=== PATIENT | female | born 1950 | race Caucasian/White ===

== ENCOUNTER 2024-07-05 08:19 | Emergency (ER) | payer OTHER, SELFPAY ==
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
[2024-07-05 08:34] VITALS: BP 177/102; PULSE 90; RESP 18; TEMP 36.6; O2SAT 99; BMI 23.4
[2024-07-05] MEDS: Acetaminophen 325 MG TABLET 650 MG PO (09:27)
[2024-07-05 11:30] VITALS: BP 146/94; PULSE 84; RESP 16; TEMP 37; O2SAT 99
[2024-07-05 11:31] VITALS: BP 146/94; PULSE 84; RESP 16; TEMP 37; O2SAT 99
--- OUTSIDE RECORDS SUMMARY | 2024-07-05 13:05 | XMS_ITS | Clinical Summary ---
Author Organization [facility] Address [address] [place] [address] Phone Care Team Providers Care Finance Vice President Name Role Phone Ryann Penn MD Primary Care Provider + Allergies Active Allergy Reactions Criticality Noted Date Comments Codeine Other (see comments) 03/09/2013 Dexbrompheniramine-Pseudoeph 014 Hornet Venom Other (see comments) 09/11/2023 Sulfa Antibiotics Hives 07/05/2011 hives Wasp Venom 05/25/2021 Wasp Venom Protein Other (see comments) 024 Medications amLODIPine (NORVASC) 2.5 MG tablet Take 1 tablet by mouth 1 (one) time each day 08/04/2023 Active atorvastatin (LIPITOR) 10 MG tablet Take 1 tablet by mouth 1 (one) time each day 08/04/2023 Active loratadine (CLARITIN REDITABS) 10 MG dispersible tablet Take 10 mg by mouth 1 (one) time each day Active levothyroxine sodium (TIROSINT) 112 MCG capsule Take 112 mcg by mouth 1 (one) time each day Active Multiple Vitamin (multivitamin) capsule Take 1 capsule by mouth 1 (one) time each day Active Active Problems Problem Noted Date Diagnosed Date Hypertensive disorder 07/10/2022 Benign hypertension 08/23/2021 Resolved Problems Problem Noted Date Diagnosed Date Resolved Date Hypothyroidism 09/11/2023 09/11/2023 Hypercholesterolemia 07/10/2022 024 Sleep apnea 07/10/2022 09/11/2023 Hyperlipidemia 08/23/2021 09/11/2023 Urgent desire to urinate 05/25/202109/2023 Overview (09/11/2023): Last Assessment & Plan: Decrease spicy, acidic foods and drinks. Decrease caffeine and carbonated beverages. Try to train the bladder by only going to the bathroom every 2 hours. Increase by a small amount of time daily to get to that goal. In the meantime, when you have the urge FREEZE AND SQUEEZE. If not improving, she will call to follow up with Urology for possible medical management of overactive bladder. Mitral valve regurgitation 03/26/2021 0 09/11/2023 Overview (09/11/2023): Mitral valve regurgitation Urticaria 03/06/2021 09/11/2023 Overview (09/11/2023): wasp and insect referred to Allergy History of Helicobacter pylori infection 05/05/2019 09/11/2023 Overview (09/11/2023): Triple therapy (OAC). Test of cure was negative 06/2019. Cervical spondylosis without myelopathy 09/13/2015 09/11/2023 Periodic limb movement disorder 02/11/2014 09/11/2023 Obstructive sleep apnea 02/11/201409/2023 Overview (09/11/2023): ResScan 02/17/2015 to 03/18/2015. CPAP@ 4-12 with 8.3 average. 87% compliant with using the machine for >4 hours/day. Average use is 6.25 hours a night with AHI 1.4. [employer] message sent to patient. 05/12/2018 to 08/09/2018. CPAP@ 4-12/Average 9.7/Max 9.8. 100% compliant with using the machine for >4 hours/day. Average use is 7.75 hours a night with AHI 1.3. Last Assessment & Plan: Continue with the use of CPAP New sleep study Patient will need a new CPAP machine with The sleep study. We will call her after the results. Allergic rhinitis 07/19/2011 09/11/2023 Immunizations Name Administration Dates Next Due Influenza Split High Dose Pr eservative Free IM 03/13/2020,05/17/2019,04/13/2017 Influenza Vaccine, Quadrival ent, Adjuvanted 03/19/2021 Influenza, Unspecified 03/06/2023,06/23/2018,06/2012 Pfizer SARS-COV-2 03/06/2023, 2,12/21/2021,03/19,08/15/2020,07/25/2020 Pneumococcal Conjugate 13-Valent 05/08/2017 Pneumococcal Polysaccharide 05/17/2019 Tdap 09/30/2022,10/27/2012 Family History Medical History Relation Comments Hypertension Brother Migraines Brother Cancer Father Ulcers Father Diabetes Mother's Brother Cancer Mother's Sister Ulcers Mother's Sister Ulcers Paternal Grandfather Stroke Sister Relation Status Comments Brother Father Mother's Brother Mother's Sister Paternal Grandfather Sister Social History Tobacco Use Types Packs/Day Years Used Date Smoking Tobacco: Never Passive Smoke Exposure: Never Smokeless Tobacco: Never Tobacco Cessation:Counseling Given: No Alcohol Use Standard Drinks/Week Comments Never 0 (1 standard drink = 0.6 oz pur e alcohol) Comments Unknown Sex and Gender Information Value Date Recorded Sex Assigned at Not on file Legal Sex Female 9:36 AM EST Gender Identity Not on file Sexual Orientation Not on file Last Filed Vital Signs Vital Sign Reading Time Taken Comments Blood Pressure 130/70 09/12/2023 9:58 AM EDT Pulse 83 09/12/2023 9:58 AM EDT Temperature - - Respiratory Rate - - Oxygen Saturation - - Inhaled Oxygen Concentration - - Weight 59.9 kg (132 lb) 09/12/2023 9:58 AM EDT Height - - Body Mass Index - - Plan of Treatment Health Maintenance Due Date Last Done Comments Influenza Vaccine (#1) 2024 3, 03/19/2021, 03/13/2020, Additional history exists Pneumococcal Vaccine: 65+ Years Completed 05/17/2019, 05/08/2017 Hepatitis B Vaccine Aged Out No longe r eligible based on patient's age to complete this topic Insurance [address] [place] [address] [facility] Care Teams Finance Vice President Relationship Specialty Start Date End Date Ryann Penn MD PCP - General 08/11/23
--- OUTSIDE RECORDS SUMMARY | 2024-07-05 13:05 | XMS_ITS | Clinical Summary ---
Author Organization [address] Address [address] [place] [phone] Phone Care Team Providers Care Industrial Machine Assembler Name Role Phone Ryann Osorio MD Primary Care Prov ider Allergies Active Allergy Reactions Criticality Noted Date Comments Codeine 03/09/2013 Dexbrompheniramine-Pseudoephed 02/27 Hornet Venom Other 09/11/2023 Sulfa (Sulfonamide Antibiotics) 06/10 hives Wasp Venom 05/25/2021 Medications Medication Sig Dispensed Refills Start Date End Date Status amLODIPine (NORVASC) 2.5 mg tablet TAKE 1 TABLET BY MOUTH DAILY 01/30/2024 Active multivitamin with minerals (MULTIPLE VITAMIN-MINERALS ORAL) Take by mouth daily. Active atorvastatin (LIPITOR) 10 mg tablet TAKE 1 TABLET BY MOUTH DAILY 01/30/2024 Active EPINEPHrine (EpiPen 2-Jesse) 0.3 mg/0.3 mL injection 10/16/2023 Active fluticasone propionate (FLONASE) 50 mcg/actuation nasal spray 2 Sprays by Nasal route daily. 04/01/2019 Active loratadine (CLARITIN REDITABS) 10 mg dispersible tablet Take 10 mg by mouth daily. Active levothyroxine (SYNTHROID, LEVOTHROID) 112 mcg tablet TAKE 1 TABLET BY MOUTH DAILY 90 tablet 1 05/13/2024 Active Active Problems Problem Noted Date Diagnosed Date Hypothyroidism 04/05/2024 HTN (hypertension), benign 08/23/2021 Hyperlipidemia 08/23/2021 Urinary urgency 05/25/2021 Overview (04/05/2024): Last Assessment & Plan: Decrease spicy, acidic [...] of overactive bladder. 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 CPAP@ 4-12 with 8.3 average. 87% compliant with using the machine for >4 hours/day. Average use is 6.25 hours a night with AHI 1.4. [employer] message sent to patient. 05/12/2018 to 08/09/2018. CPAP@ 4-12/Average 9.7/Max 9.8. 100% compliant with using the machine for >4 hours/day. Average use is 7.75 hours a night with AHI 1.3. Last Assessment & Plan: Continue with the use of CPAP New sleep study Patient will need a new CPAP machine with The sleep study. We will call her after the results. Periodic limb movement disorder (PLMD) 4 Allergic rhinitis 07/19/2011 Encounters Date Type Department Care Team Description 05/17/2024 9:30 AM EST Office Visit Adult Medicine [address] [phone] Lisandra Justice PA Adult general medical examination (Primary Dx); Easy bruising; Acute non-recurrent maxillary sinusitis; Sensation of feeling cold; History of skin cancer 05/14/2024 12:30 PM EST Office Visit [address] [phone] Erma Collier PA Easy bruising (Primary Dx); Acute non-recurrent maxillary sinusitis; HTN (hypertension), benign; Mixed hyperlipidemia; Hypothyroidism, unspecified type 04/26/2024 Nurse Triage [address] [phone] Ryann Osorio MD Bleeding/Bruising from Last 3 Months Immunizations Name Administration Dates Next Due Influenza trivalent, 0.5mL ( Fluad) 65yo and older 03/19/2021,03/13/2020,05/17/2019,04/13 Influenza trivalent, 0.5mL, preservative free (Fluarix; FluLaval; Fluzone) ages 6mo and older (Afluria) 3 years and older 03/06/2023,03/09/2013 Influenza, Unspecified 06/23/2018 Flixwagon SARS-CoV-2 COVID-19, mRNA, LNP-S, preservative free 03/06/2023,03/19/2021 Pneumococcal conjugate 13 va lent (Prevnar 13, PCV13) 2mo and older 05/08/2017 Pneumococcal polysaccharide 23 valent (Pneumovax 23) 2yo and older 05/17/2019 Tdap Tetanus diptheria acell ular pertussis (Boostrix; Adacel) 7yo and older 09/30/2022,10/27/2012 Surgical History Surgery Date Site/Laterality Comments HYSTERECTOMY PROCEDURE: HISTORICAL HYSTERECTOMY; COMMENT: 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 breast bx.-benign BREAST SURGERY PROCEDURE: [place] UNLISTED PROCEDURE BREAST; COMMENT: bilat implants, lt implant deflated. never removed COLONOSCOPY 05/10/2020 PROCEDURE: HISTORICAL COLONOSCOPY; COMMENT: tiny polyp - hyperplastic Medical History Medical History Date Comments Hypothyroidism DX:Hypothyroidis m Other specified personal his tory presenting hazards to health(V15.89) DX:Other specifie d personal history presenting hazards to health(V15.89); COMMENT: basal cell Periodic limb movement disorder (PLMD) 4 DX:Periodic limb movement disorder (PLMD) Obstructive sleep apnea (linette lt) (pediatric) 02/11/2014 DX:Obstructive sleep apnea ( adult) (pediatric) Allergic rhinitis 07/19/2011 DX:Allergic rh initis Embedded tick of upper arm 10/19/2012 DX:Em bedded tick of upper arm History of Helicobacter pylo ri infection 05/05/2019 DX:History of Helicobacter p ylori infection; COMMENT: Triple therapy (OAC). Test of cure was negative 06/2019. Skin cancer DX:Skin cancer Family History Medical History Relation Name Comments Uterine cancer Aunt 1 maternal Other: gastric ulcers Aunt 2 paternal Hypertension Brother Migraines Brother Lung cancer Father smoker, d Other: gastric ulcer Father Hypertension Mother fath Breast cancer Other 1 cousin age 40 Breast cancer Other 2 2nd paternal cousin Other: gastric ulcers Paternal Grandfather Stroke Sister Diabetes Uncle Colon cancer Neg Hx Heart attack Neg Hx Ovarian cancer Neg Hx Pancreatic cancer Neg Hx Prostate cancer Neg Hx Relation Name Status Comments Aunt 1 maternal Aunt 2 paternal Alive Brother Father Mother Other 1 cousin age 40 Alive p. cousin Other 2 2nd paternal cousin Alive Paternal Grandfather Sister Uncle Social History Tobacco Use Types Packs/Day Years Used Date Smoking Tobacco: Former Smokeless Tobacco: Former Comments:One year in college Alcohol Use Standard Drinks/Week Comments Not Currently 0 (1 standard drink = 0.6 oz pur e alcohol) Housing Instability Answer Date Recorde d Are you worried that in the next 2 months you may not have stable housing? No 05/17/2024 Food Access & Nutrition Answer Date Rec orded Do you have access to a vari ety of food including fruits and vegetables? Yes 05/17/2024 Health Literacy Answer Date Recorded How often do you need to hav e someone help you when you read instructions, pamphlets, or other written material from your doctor or pharmacy? Never 05/17/2024 Caregiver: How often do you need to have someone help you when you read instructions, pamphlets, or other written material from your doctor or pharmacy? Not on file 05/17/2024 Financial Risk Answer Date Recorded How hard is it for you to pa y for the very basics like food, housing, medical care, and air conditioning / heating? Not very hard 05/17/2024 Transportation Answer Date Recorded Has the lack of transportati on kept you from meetings, work, or from getting things needed for daily living? No Has the lack of transportati on kept you from medical appointments or from getting medications? No 05/17/2024 Social Isolation Answer Date Recorded How often do you feel lonely or isolated from th ose around you? Never 05/17/2024 Food Risk Answer Date Recorded Within the past 12 months we worried whether our food would run out before we got money to buy more. Never true 05/17/2024 Within the past 12 months th e food we bought just didn't last and we didn't have money to get more. Never true 05/17/2024 Dependent Care Answer Date Recorded Do you need help finding or paying for care for your loved ones. For example, child care center assistant director or elderly care for an older adult? No 05/17/2024 Education Answer Date Recorded Do you think completing more education or training, like finishing a GED, going to college, or learning a trade, would be helpful for you? No 05/17/2024 Employment and Income Answer Date Recor ded During the last four weeks, have you been actively looking for work? No 05/17/2024 Living Situation Answer Date Recorded What is your living situation? 1 07/18/2023 Sex and Gender Information Value Date Recorded Sex Assigned at Not on file Gender Identity Not on file Sexual Orientation Not on file Job Start Date Occupation Industry Not on file Not on file Not on file Obstetrics History Last Filed Vital Signs Vital Sign Reading Time Taken Comments Blood Pressure 136/77 05/17/2024 9:32 AM EST Pulse 81 05/17/2024 9:32 AM EST Temperature 36 ??C (96.8 ??F) 05/17/2024 9:32 AM EST Respiratory Rate 16 05/17/2024 9:32 AM EST Oxygen Saturation - - Inhaled Oxygen Concentration - - Weight 58.5 kg (129 lb) 05/17/2024 9:32 AM EST Height 157.5 cm (5' 2 ) 05/17/2024 9:32 AM EST Body Mass Index 23.59 05/17/2024 9:32 AM EST Plan of Treatment Upcoming Encounters Date Type Department Care Team (Late st Contact Info) Description 08/05/2024 8:30 AM EST Office Visit Pulmonolgy - [place] [address] [facility] [address] [place] [phone] Maia Moreno MD [address] [address] 11/04/2024 9:00 AM EDT Appointment Radiology Department - [address] [phone] 11/15/2024 9:00 AM EDT Office Visit [facility] - [address] [phone] Ryann Osorio MD [address] [place] [address] Health Maintenance Due Date Last Done Comments Zoster Vaccines (1 of 2) 1969 COVID-19 Vaccine ( season) 2024 03/06/2023, 12/21/2021, 03/19/2021, Additional history exists Hypertension/CHF/CAD Annual BMP Blood Test 11/19/2024 11/20/2023, 11/20/2023 Depression Screening 05/17/2025 05/17/2024 Falls Risk Assessment 05/17/2025 05/17/2024 Social Influencers of Health Screening 05/17/2025 05/17/2024 Cholesterol Screening (Lipid Panel) 11/19/2028 11/20/2023, 11/20/2023 DTaP,Tdap,and Td Vaccines (3 - Td or Tdap) 09/30/2032 09/30/2022, 10/27/2012 Osteoporosis Screening (Bone Density Screening) 02/19/2033 02/19/2023, 11/16/2020, 04/25/2017 Hepatitis C Screening Completed 03/12/2013 Pneumococcal Vaccine: 65+ Years Completed 05/17/2019, 05/08/2017 Colorectal Cancer Screening: Colonoscopy Discontinued 05/10/2020 Breast Cancer Screening Discontinued 10/23/19 24, 10/23/2023, 10/16/2022, Additional history exists Influenza Vaccine Completed 03/15/2024, , 03/19/2021, Additional history exists RSV Immunization Patients 60+ Years Old Completed 03/15/2024 HIB Vaccines Aged Out No longer eligi ble based on patient's age to complete this topic HPV Vaccines Aged Out No longer eligi ble based on patient's age to complete this topic Hepatitis A Vaccines Aged Out No long er eligible based on patient's age to complete this topic Hepatitis B Vaccines Aged Out No long er eligible based on patient's age to complete this topic IPV Vaccines Aged Out No longer eligi ble based on patient's age to complete this topic MMR Vaccines Aged Out No longer eligi ble based on patient's age to complete this topic Meningococcal ACWY Vaccine Aged Out N o longer eligible based on patient's age to complete this topic RSV Immunization Patients Under 20 months Aged Out No longer eligible based on patient's age to complete this topic Varicella Vaccines Aged Out No longer eligible based on patient's age to complete this topic Procedures Procedure Name Priority Date/Time Associated Diagnosis Comments POC RAPID STREP A Routine 05/14/2024 1:0 8 PM EST HTN (hypertension), benign POC INFLUENZA A/B Routine 05/14/2024 1:0 8 PM EST HTN (hypertension), benign POC RAPID [id number], MOLECULAR Routine 05/14/2024 1:08 PM EST HTN (hypertension), benign CBC WITH AUTO DIFFERENTIAL Routine 05/12/2024 12:10 PM EST Bruising ACTIVATED PARTIAL THROMBOPLASTIN TIME Routine 05/12/2024 12:10 PM EST Bruising PROTHROMBIN TIME WITH INR Routine 05/12/2024 12:10 PM EST Bruising CBC AND DIFFERENTIAL Routine 05/12/2024 12:10 PM EST Bruising THYROID STIMULATING HORMONE Routine 05/12/2024 12:10 PM EST Bruising ANNUAL BMP BLOOD TEST Routine 11/20/2023 LIPID PANEL Routine 11/20/2023 SCREENING MAMMOGRAPHY BI 2-VIEW BREAST INC CAD Routine 10/23/2023 8:03 AM EDT Encounter for screening mammogram for malignant neoplasm of breast DXA BONE DENSITY STUDY 1+ SITS AXIAL SKEL Routine 02/19/2023 9:33 AM EDT Encounter for screening for osteoporosis HEPATITIS C SCREENING Routine 03/12/2013 from Last 3 Months or Most Recently Relevant to Health Maintenance Results * Poc Rapid [id number], MOLECULAR (05/14/2024 1:08 PM EST) [facility] COVID-19/SARS- COV-2 Rapid POC Negative Negative Internal Control Pass Yes Yes Mucous Nasopharyngeal structure / Unknown 05/14/2024 1:08 PM EST Erma Collier PA POINT OF CARE TEST E NTER/EDIT ORDERABLES * POC Influenza A/B manually resulted (05/14/2024 1:08 PM EST) [facility] Rapid Influenza A AGN POC Negative Negative Rapid Influenza B AGN POC Negative Negative Internal Control Pass Yes Yes Swab 05/14/2024 1:08 PM EST Erma Collier PA POINT OF CARE TEST E NTER/EDIT ORDERABLES * POC rapid strep A manually resulted (05/14/2024 1:08 PM EST) [facility] Rapid Strep A Screen POC Negative Negative Internal Control Pass Yes Yes Swab Structure of anterior portion of neck / Unknown 05/14/2024 1:08 PM EST Erma Collier PA POINT OF CARE TEST E NTER/EDIT ORDERABLES * (ABNORMAL) CBC auto differential (05/12/2024 12:10 PM EST) [facility] WBC 7.2 4.8 - 10.8 K/mcL LAB HEMETOLOGY METHOD 05/12/2024 1:56 PM [facility] RBC 4.10 3.80 - 4.80 M/mcL LAB HEMETOLOGY METHOD 05/12/2024 1:56 PM [facility] Hemoglobin 12.3 11.5 - 16.0 g/dL LAB HEMETOLOGY METHOD 05/12/2024 1:56 PM [facility] Hematocrit 39.3 35.0 - 47.0 % LAB HEMETOLOGY METHOD 05/12/2024 1:56 PM [facility] MCV 95.2 79.0 - 98.0 FL LAB HEMETOLOGY METHOD 05/12/2024 1:56 PM [facility] MCH 29.8 27.0 - 32.0 pcg LAB HEMETOLOGY METHOD 05/12/2024 1:56 PM [facility] MCHC 31.3(L) 32.0 - 37.0 g/dL LAB HEMETOLOGY METHOD 05/12/2024 1:56 PM [facility] RDW 12.7 11.0 - 15.0 % LAB HEMETOLOGY METHOD 05/12/2024 1:56 PM [facility] Platelets 215 130 - 400 K/mcL LAB HEMETOLOGY METHOD 05/12/2024 1:56 PM [facility] MPV 12.2(H) 7.0 - 11.0 FL LAB HEMETOLOGY METHOD 05/12/2024 1:56 PM [facility] NRBC 0.0 <1.0 % LAB HEMETOLOGY METHOD 05/12/2024 1:56 PM [facility] NRBC Absolute 0.00 <0.10 K/mcL LAB HEMETOLOGY METHOD 05/12/2024 1:56 PM [facility] Neutrophils Relative 67.2 % LAB HEMETOLOGY METHOD 05/12/2024 1:56 PM [facility] Lymphocytes Relative 20.1 % LAB HEMETOLOGY METHOD 05/12/2024 1:56 PM [facility] Monocytes Relative 9.4 % LAB HEMETOLOGY METHOD 05/12/2024 1:56 PM [facility] Eosinophils Relative 2.4 % LAB HEMETOLOGY METHOD 05/12/2024 1:56 PM [facility] Basophils Relative 0.6 % LAB HEMETOLOGY METHOD 05/12/2024 1:56 PM [facility] Immature Granulocytes Relative 0.3 % LAB HEMETOLOGY METHOD 05/12/2024 1:56 PM [facility] Neutrophils Absolute 4.82 1.50 - 7.00 K/mcL LAB HEMETOLOGY METHOD 05/12/2024 1:56 PM [facility] Lymphocytes Absolute 1.44 1.00 - 5.00 K/mcL LAB HEMETOLOGY METHOD 05/12/2024 1:56 PM [facility] Monocytes Absolute 0.67 0.20 - 1.00 K/mcL LAB HEMETOLOGY METHOD 05/12/2024 1:56 PM [facility] Eosinophils Absolute 0.17 0.00 - 0.50 K/mcL LAB HEMETOLOGY METHOD 05/12/2024 1:56 PM [facility] Basophils Absolute 0.04 0.00 - 0.20 K/mcL LAB HEMETOLOGY METHOD 05/12/2024 1:56 PM [facility] Immature Granulocytes Absolute 0.02 0.00 - 0.03 K/mcL LAB HEMETOLOGY METHOD 05/12/2024 1:56 PM [facility] Blood Venous blood specimen / Unknown Venipuncture / Unknown 05/12/2024 12:10 PM EST 05/12/2024 12:10 PM EST Ryann Osorio MD LAB BLOOD ORDERABLES Performing Organization Address City/[facility]/ZIP Co de Phone Number [facility] [address] [place] [address], [place] [phone] * Activated partial thromboplastin time (05/12/2024 12:10 PM EST) aPTT 33.8 24.1 - 39.3 sec LAB COAGULATION METHOD 05/12/2024 1:59 PM EST [facility] Blood Venous blood specimen / Unknown Venipuncture / Unknown 05/12/2024 12:10 PM EST 05/12/2024 12:10 PM EST Ryann Osorio MD LAB BLOOD ORDERABLES Performing Organization Address [facility]/ZIP Co de Phone Number [facility] [address] [place] [address], [place] [phone] * Prothrombin time with INR (05/12/2024 12:10 PM EST) [facility] Protime 11.6 10.6 - 13.9 sec LAB COAGULATION METHOD 05/12/2024 1:59 PM EST [facility] INR 0.9 LAB COAGULATION METHOD 05/12/2024 1:59 PM EST [facility] Blood Venous blood specimen / Unknown Venipuncture / Unknown 05/12/2024 12:10 PM EST 05/12/2024 12:10 PM EST Ryann Osorio MD LAB BLOOD ORDERABLES Performing Organization Address City/[facility]/ZIP Co de Phone Number [facility] [address] [place] [address], [place] [phone] * Thyroid stimulating hormone (05/12/2024 12:10 PM EST) [facility] TSH 1.93 0.40 - 4.00 mcIU/mL LAB CHEMISTRY METHOD 05/12/2024 2:45 PM EST [facility] Blood Venous blood specimen / Unknown Venipuncture / Unknown 05/12/2024 12:10 PM EST 05/12/2024 12:10 PM EST Ryann Osorio MD LAB BLOOD ORDERABLES [facility] [address] [place] [address], * Annual BMP Blood Test (11/20/2023) [facility] Annual BMP Blood Test Abstracted Historical Provider [facility] * Lipid panel (11/20/2023) [facility] LDL/HDL Ratio 2 0 - 4 Triglycerides 70 0 - 150 mg/dL Cholesterol 165 0 - 200 mg/dL HDL 78 40 mg/dL LDL Cholesterol 73 0 - 100 mg/dL Blood Venous blood specimen / Unknown Historical Provider LAB BLOOD ORDERAB LES * SCREENING MAMMOGRAPHY BI 2-VIEW BREAST INC CAD (10/23/2023 8:03 AM EDT) Anatomical Region Laterality Modality Radiographic Jia ging 10/16/2022 7:48 AM EDT Narrative 10/23/2023 6:56 PM EDT This is a summary report. The complete report is available in the patient's medical record. If you cannot access the medical record, please contact the sending organization for a detailed fax or copy. Exam: Screening mammogram Findings: Digital bilateral full-field screening mammography is performed with tomosynthesis and interpreted with the aid of computer-aided detection. ??Comparison is made with 10/16/2022 and as far back as 11/06/2018. ??Implant and implant displaced views performed. Breast parenchyma is composed of scattered fibroglandular densities. 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 ??Right implant appears intact. ??No new suspicious mass, architectural distortion, or suspicious calcifications. Impression: No mammographic evidence of malignancy. BI-RADS 2-benign Procedure Note Viry Salmeron MD - 01/26/2024 This is a summary report. The complete report is available in thepatient's medical record. If you cannot access the medical record, pleasecontact the sending organization for a detailed fax or copy. Exam: Screening mammogram Findings: Digital bilateral full-field screening mammography is performedwith tomosynthesis and interpreted with the aid of computer-aideddetection. Comparison is made with 10/16/2022 and as far back as11/06/2018. Implant and implant displaced views performed. Breast parenchyma is composed of scattered fibroglandular densities.Patient is noted to have a history of left implant failure not removedwith a portion of the implant seen in the far posterior left breast on theCC projection. Right implant appears intact. No new suspicious mass,architectural distortion, or suspicious calcifications. Impression: No mammographic evidence of malignancy. BI-RADS 2-benign Ryann Osorio MD IMG XR PRO CEDURES * DXA BONE DENSITY STUDY 1+ SITS AXIAL SKEL (02/19/2023 9:33 AM EDT) Anatomical Region Laterality Modality Bone Densitometr y 11/20/2022 9:09 AM EDT Narrative 02/20/2023 8:20 PM EDT STUDY: ??DUAL ENERGY X-RAY ABSORPTIOMETRY / DXA REASON FOR EXAM: ?? Female, 72 years old. ??osteoporosis TECHNIQUE: ?? Bone Mineral Density (BMD) measurements of the lumbar spine and left hip were obtained. ?? COMPARISON: November 16, 2020 ?? FINDINGS: L1, L4 T score: -2.0. ??This corresponds to osteopenia. This represents a 7.2 % increase in bone density compared with prior exam from November 16, 2020. Left femoral neck T score: -1.9. ??This corresponds to osteopenia. Left total hip T score: -1.3. ??This corresponds to osteopenia. This represents a -3.3 % decrease in bone density compared with prior exam from November 16, 2020. FRAX score: 10 year risk of major osteoporotic fracture 13%, 10 year risk of hip fracture 3.1% IMPRESSION: IMPRESSION: Osteopenia Reference Information: The T-score is the number of standard deviations above or below the standard which is normal for young adults at their peak bone mineral density. The World Health Organization (WHO) interprets the T-scores as follows: Above ??-1 ?Normal bone density Between -1 and -2.5 ?Osteopenia Equal to / or below -2.5 ??Osteoporosis As a practical clinical guideline, osteopenia may be graded as follows: Mild -1 through -1.5 Moderate -1.6 ??through -2.0 Severe ??-2.1 ??through -2.4 References: 1. ??NIH Osteoporosis and Related Bone Diseases http://www.osteo.org 2. ??International Society for Clinical Densitometry http://www.iscd.org 3. ??National Osteoporosis Foundation http://www.nof.org Procedure Note Ryan Devi MD - 07/15/2023 STUDY: DUAL ENERGY X-RAY ABSORPTIOMETRY / DXA REASON FOR EXAM: Female, 72 years old. osteoporosis TECHNIQUE: Bone Mineral Density (BMD) measurements of the lumbar spineand left hip were obtained. COMPARISON: November 16, 2020 FINDINGS: L1, L4 T score: -2.0. This corresponds to osteopenia. This represents a 7.2 % increase in bone density compared with prior examfrom November 16, 2020. Left femoral neck T score: -1.9. This corresponds to osteopenia. Left total hip T score: -1.3. This corresponds to osteopenia. This represents a -3.3 % decrease in bone density compared with prior examfrom November 16, 2020. FRAX score: 10 year risk of major osteoporotic fracture 13%, 10 year riskof hip fracture 3.1% IMPRESSION: IMPRESSION: Osteopenia Reference Information: The T-score is the number of standard deviations above or below thestandard which is normal for young adults at their peak bone mineral density. The World HealthOrganization (WHO) interprets the T-scores as follows: Above -1 Normal bone density Between -1 and -2.5 Osteopenia Equal to / or below -2.5 Osteoporosis As a practical clinical guideline, osteopenia may be graded as follows: Mild -1 through -1.5 Moderate -1.6 through -2.0 Severe -2.1 through -2.4 References: 1. NIH Osteoporosis and Related Bone Diseases http://www.osteo.org 2. International Society for Clinical Densitometry http://www.iscd.org 3. National Osteoporosis Foundation http://www.nof.org Ryann Osorio MD IMG DXA [place] OCEDURES * Hepatitis C Screening (03/12/2013) [facility] Hepatitis C Screening Abstracted Historical Provider MD JACK Rae from Last 3 Months or Most Recently Relevant to Health Maintenance Care Teams Industrial Machine Assembler Relationship Specialty Start Date End Date Ryann Osorio MD [address] [place] [address] PCP - General Internal Medicine 01/07/22
--- OUTSIDE RECORDS SUMMARY | 2024-07-05 13:05 | XMS_ITS | Data Portability ---
Author Organization RAFAEL Isbell [facility] [address] Address [address] [place] [address] Care Team Providers Care Input Output Clerk Name Role Phone [facility] Primary Care Provider [phone] Assessment No assessment recorded. Plan of Treatment Reminders Order Date Submit Date Provider Last Modified By Organization Details Last Modified Time Details Appointments None recorded. Lab urinalysis , dipstick [email or web address], [address], 17:16:43 culture, urine 2022 023 [place] [facility], [address] [place] [address], [address], 16:06:34 Referral None recorded. Procedures None recorded. Surgeries None recorded. Imaging None recorded. Medication Orders Macrobid 100 mg capsule 2022 023 [id number], [address] [place] [address], [id number], 17:16:55 Patient TargetsNo targets recorded. Patient Instructions Encounter Date Encounter Id Patient Instructions Last Modified By Organization Details Last Modified Time 07/10/2022 [id number] Urinary Tract Infection (UTI) in Women: Care Instructions Not available 07/10/2022 17:16:43 You are going to be treated for a Urinary Tract Infection. The following are recommendations to help with your symptoms and recovery: 1. Drink Plenty of fluids - Stay hydrated 2. Finish full antibiotic course 3. I recommend starting a Probiotic - I recommend Florastor 4. If you take Azo - this will help the burning and urgency feeling - just be aware it will turn your urine bright yellow. I would not hesitate to be seen again if you develop: 1. Severe Back Pain 2. Abdominal Pain 3. Nausea and Vomiting 4. Vaginal Discharge or Bleeding 5. Fever > 101.0 You symptoms should improve within 72 hours for a typically UTI. If a urine culture was sent out to the lab for you we should get the results back within 4 days. This will be able to prove that your symptoms are caused by a UTI and it will also verify that the correct antibiotic was prescribed. Thank you for using [facility] - please don't hesistate to call our office if you have any questions or concerns. [email or web address] Not available 07/10/2022 17:16:42 Reason for Referral None Reported. Results Created Date Observation Date Name Description Value Unit Range Abnormal Flag Note LastModifiedBy Organization Detail LastModifiedTime 07/10/1907/12/2022 URINE CULTU ABIGAIL JON urine culture, routine FINAL REPORT abnormal Not Available [facility] ([facility]) [address] [facility], [place], [address], 07/12/2022 16:06:34 07/10/1907/12/2022 URINE CULTU REABIGAIL result 1 COMMEN T abnormal Beta hemol ytic Strep tococ cus, group B 10,00 0-25, 000 colon y formi ng units per mL Penic illin and ampic illin are drugs of choic e for treat ment of beta- hemol ytic strep tococ salazar infec tions . Susce ptibi lity testi ng of penic illin s and other beta- lacta m agent s appro jeffrey by the FDA for treat ment of beta- hemol ytic strep tococ salazar infec tions need not be perfo rmed abigail blockau se nonsu scept ible isola edouard are extre amber rare in any beta- hemol ytic strep tococ cus and have not been repor sade for Strep tococ cus pyoge lyndon (grou p A). (CLSI ) Not Available [facility] ([facility]) [address] [facility], [place], [address], 07/12/2022 16:06:34 07/10/19 23 07/10/2022 urina lysis , dipst ick Unknown Analyte Normal = light yellow Not Available yenifer amaya [address], [place], [address], 07/10/2022 16:45:47 07/10/19 23 07/10/2022 urina lysis , dipst ick Unknown Analyte Light Yellow Not Available yenifer amaya [address], [place], [place], [address], 07/10/2022 16:45:47 07/10/19 23 07/10/2022 urina lysis , dipst ick Unknown Analyte Normal = clear Not Available [facility] [address], [place], [address], 07/10/2022 16:45:47 07/10/19 23 07/10/2022 urina lysis , dipst ick Unknown Analyte Clear Not Available [address], [place], [place], [address], 07/10/2022 16:45:47 07/10/19 23 07/10/2022 urina lysis , dipst ick Unknown Analyte Normal = negati ve Not Available yenifer [address], [place], [address], 07/10/2022 16:45:47 07/10/19 23 07/10/2022 urina lysis , dipst ick Unknown Analyte Negati ve Not Available yenifer amaya [address], [place], [address], 07/10/2022 16:45:47 07/10/19 23 07/10/2022 urina lysis , dipst ick Unknown Analyte Normal = Negati ve Not Available yenifer amaya [address], [place], [address], 07/10/2022 16:45:47 07/10/19 23 07/10/2022 urina lysis , dipst ick Unknown Analyte Negati ve Not Available yenifer aamya [address], [place], [address], 07/10/2022 16:45:47 07/10/19 23 07/10/2022 urina lysis , dipst ick Unknown Analyte Normal = Negati ve Not Available yenifer amaya [address], [place], [address], 07/10/2022 16:45:47 07/10/19 23 07/10/2022 urina lysis , dipst ick Unknown Analyte Negati ve Not Available yenifer amaya [address], [place], [address], 07/10/2022 16:45:47 07/10/19 23 07/10/2022 urina lysis , dipst ick Unknown Analyte Normal = 1.010, 1.015, 1.020 Not Available yenifer amaya [address], [place], [address], 07/10/2022 16:45:47 07/10/19 23 07/10/2022 urina lysis , dipst ick Unknown Analyte 1.015 Not Available [facility] [address], [place], [address], 07/10/2022 16:45:47 07/10/19 23 07/10/2022 urina lysis , dipst ick Unknown Analyte Normal = Negati ve Not Available yenifer amaya [address], [place], [address], 07/10/2022 16:45:47 07/10/19 23 07/10/2022 urina lysis , dipst ick Unknown Analyte Trace- intact Not Available yenifer amaya [address], [place], [address], 07/10/2022 16:45:47 07/10/19 23 07/10/2022 urina lysis , dipst ick Unknown Analyte Normal = 6.5, 7.0, 7.5, 8.0 Not Available [facility] [address], [place], [address], 07/10/2022 16:45:47 07/10/19 23 07/10/2022 urina lysis , dipst ick Unknown Analyte 7.0 Not Available [address] [place] [address], [place], [address], 07/10/2022 16:45:47 07/10/19 23 07/10/2022 urina lysis , dipst ick Unknown Analyte Normal = Negati ve Not Available [address], [place], [address], 07/10/2022 16:45:47 07/10/19 23 07/10/2022 urina lysis , dipst ick Unknown Analyte Negati ve Not Available [address] [place] [address], [place], [address], 07/10/2022 16:45:47 07/10/19 23 07/10/2022 urina lysis , dipst ick Unknown Analyte Normal = 0.2, 1.0 Not Available [address] [place] [address], [place], [address], 07/10/2022 16:45:47 07/10/19 23 07/10/2022 urina lysis , dipst ick Unknown Analyte 0.2 E.U./d L Not Available [address] [place] [address], [place], [address], 07/10/2022 16:45:47 07/10/19 23 07/10/2022 urina lysis , dipst ick Unknown Analyte Normal = Negati ve Not Available 2099yenifer amaya [address], [place], [address], 07/10/2022 16:45:47 07/10/19 23 07/10/2022 urina lysis , dipst ick Unknown Analyte Negati ve Not Available 2099yenifer amaya [address], [place], [address], 07/10/2022 16:45:47 07/10/19 23 07/10/2022 urina lysis , dipst ick Unknown Analyte Normal = Negati ve Not Available 2099yenifer amaya [address], [place], [address], 07/10/2022 16:45:47 07/10/19 23 07/10/2022 urina lysis , dipst ick Unknown Analyte Trace Not Available [address], [place], [address], 07/10/2022 16:45:47 Result Notes None recorded. Problems Name Problem SNOMED Code Status Onset Date Resolution Date Notes Provider Name and Address Organization Details Recorded Time Hypertensive disorder 80078729 Active 2022 Sharon john PA - [facility] 3 16:51:20 Hypercholestero lemia 40278584 Active 2022 Sharon john PA - [facility] 16:51:27 Sleep apnea 20134103 Active 2022 Sharon john PA - [facility] 3 16:51:42 Problem Notes None recorded. Procedures Surgical History Date Name Laterality Status Provider Name and Address Organization Details Recorded Time hysterectomy completed Sharon Monfette PA - [facility] 07/10/2022 16:53:06 Imaging Results None recorded. Procedure Notes None recorded. Medical Equipment None Reported. Allergies Allergen ID Allergen Name Allergen Category Reaction Reaction Severity Criticality Documentation Date Start Date Code Code System Note Provider Name and Address Organization Details Recorded Time 915713 wasp venoms environme nt Not available Not available Not available 07/10/2022 72128 RxNorm Sharon john, PA - [facility] 3 16:48:10 178870 hornet venom environme nt Not available Not available Not available 07/10/2022 14998 UNK Sharon Rivera null, PA - [facility] 3 16:48:16 428323 Substance with sulfonami de structure and antibacte rial mechanism of action (substanc e) medicatio n hives Not available Not available 07/10/2022 51071 8003 SNOMED Sharon john, PA - [facility] 3 16:48:48 385310 codeine medicatio n Not available Not available Not available 07/10/2022 2670 RxNorm Sharon john, PA - [facility] 3 16:48:55 Medications Name Sig Start Date Stop Date Status Note LastModified by Organization Details LastModified Time Macrobid 100 mg capsule Take 1 capsule twice a day by oral route. 2022 active Not Available Not Available Not Avai lable benzonatate 100 mg capsule TAKE 1 CAPSULE BY MOUTH THREE TIMES DAILY NEEDED FOR COUGH 07/10 completed Not Available Not Available Not Available cephalexin 500 mg capsule Take 1 capsule 3 times a day by oral route for 7 days. 2022 active Not Available Not Available Not Avai lable epinephrine 0.3 mg/0.3 mL injection, auto-inject or INJECT DIRECTED NEEDED FOR ANAPHYLAX IS active Not Available Not Available No t Available fluticasone propionate 50 mcg/actuati on nasal spray,suspe nsion SHAKE LIQUID AND USE 1 SPRAY IN EACH NOSTRIL TWICE DAILY FOR ALLERGY SYMPTOMS active Not Available Not Available No t Available atorvastati n active Not Available Not Available Not Available amlodipine active Not Available Not Av ailable Not Available Horizon Nasal Cpap System active Not Available Not Available Not Available Vitals Date Recorded Body height Provider Name an d Address Organization Details Last Updated DateTime 07/10/2022 157.48 cm Sharon Rivera PA - [facility] 07/10/2022 16:53:19 Date Recorded Body mass index (BMI) Body weight Provider Name and Address Organization Details Last Updated DateTime 07/10/2022 23.4 kg/m2 84294.82 g Sharon Rivera PA - [facility] 07/10/2022 16:53:37 Date Recorded Pain severity - 0-10 verbal numeric rating [Score] - Reported Provider Name and Address Organization Details Last Updated DateTime 07/10/2022 5 Sharon Rivera PA - [facility] 07/10/2022 16:53:51 Date Recorded Oxygen saturation Oxygen saturation in Arterial blood by Pulse oximetry Provider Name and Address Organization Details Last Updated DateTime 07/10/2022 100 % 100 % Sharon Rivera PA - [facility] 07/10/2022 16:56:03 Date Recorded Heart rate Provider Name an d Address Organization Details Last Updated DateTime 07/10/2022 71 /min Sharon Rivera PA - [facility] 07/10/2022 16:56:07 Date Recorded Respiratory rate Provider Name a nd Address Organization Details Last Updated DateTime 07/10/2022 18 /min Sharon Rivera PA - [facility] 07/10/2022 16:56:09 Date Recorded Body temperature Provider Name a nd Address Organization Details Last Updated DateTime 07/10/2022 97.8 [degF] Sharon Rivera PA - [facility] 07/10/2022 16:56:18 Date Recorded Systolic blood pressure Diastolic blood pressure Provider Name and Address Organization Details Last Updated DateTime 07/10/2022 160 mm[Hg] 90 mm[Hg] Sharon Rivera PA - [facility] 07/10/2022 17:08:07 Social History Question Answer Notes LastModified by Organizat ion Details LastModified Time What Is Your Level Of Alcohol Consumption? None Information not available 07/10/2022 Do You Use Any Illicit Or Recreational Drugs? No Information not available 07/10/2022 Have You Recently Traveled Abroad? No Information not available 07/10/2022 Do You Or Have You Ever Used Any Other Forms Of Tobacco Or Nicotine? No Information not available 07/10/2022 Sex: Unknown Functional Status None recorded. Mental Status None recorded. Family History Relationship Description Onset Age of this Age Resolved Age Notes LastModified by Organization Details LastModified Time Father Heart disease [email or web address] Not available 2022 16:52:24 Father Malignant tumor of lung [email or web address] Not available 2022 16:52:37 Mother Heart disease [email or web address] Not available 2022 16:52:24 Brother Heart disease [email or web address] Not available 2022 16:52:24 Sister Heart disease [email or web address] Not available 2022 16:52:24 Medical History No medical history recorded. Gynecological HistoryNo gynecological history recorded. Obstetrics History GPAL:G 0 P 0 0 0 0 Immunizations Vaccine Type Date Status Note Provider Nam e and Address Organization Details Recorded Time Influenza, adjuvanted, quadrivalent, PF 1 completed Sharon Monfette null, PA - [facility] 07/10/2022 16:47:56 COVID-19, mRNA, LNP-S, PF, 30 mcg/0.3 mL dose 1 completed Sharon Monfette null, PA - [facility] 07/10/2022 16:47:56 COVID-19, mRNA, LNP-S, PF, 30 mcg/0.3 mL dose 1 completed Sharon Monfette null, PA - [facility] 07/10/2022 16:47:56 COVID-19, mRNA, LNP-S, PF, 30 mcg/0.3 mL dose 1 completed Sharon Monfette null, PA - [facility] 07/10/2022 16:47:56 COVID-19, mRNA, LNP-S, PF, 30 mcg/0.3 mL dose, kimmie-sucrose 2 completed Sharon Monfette null, PA - [facility] 07/10/2022 16:47:56 pneumococcal polysaccharide PPV23 9 completed Sharon Monfette null, PA - [facility] 07/10/2022 16:47:56 Tdap 3 completed Sharon Monfette null, PA - [facility] 07/10/2022 16:47:56 Pneumococcal conjugate PCV 13 7 completed Sharon Monfette null, PA - [facility] 07/10/2022 16:47:56 Influenza, high-dose, trivalent, PF 0 completed Sharon Monfette null, PA - [facility] 07/10/2022 16:47:56 Influenza, high-dose, trivalent, PF 7 completed Sharon Monfette null, PA - [facility] 07/10/2022 16:47:56 Influenza, high-dose, trivalent, PF 9 completed Sharon Monfette null, PA - [facility] 07/10/2022 16:47:56 Influenza, split virus, trivalent, preservative 3 completed Sharon Monfette null, PA - [facility] 07/10/2022 16:47:56 Past Encounters Encounter ID Performer Location Encounter Start Date Encounter Closed Date Diagnosis/Indication Diagnosis SNOMED-CT Code Diagnosis ICD10 Code Diagnosis Note [id number] [address] [place] [address] 02/09/2019 16:43:55 02/09/2019 18:02:36 [id number] [address] [place] [address] 02/26/2021 08:36:57 02/26/2021 09:56:13 [id number] [address] [place] [address] 04/18/2020 11:09:04 04/18/2020 14:32:03 [id number] [address] [place] [address] 09/13/2020 18:13:01 09/13/2020 19:15:37 [id number] [address] [place] [address] 11/20/2021 11:32:48 11/20/2021 14:59:01 [id number] [address] [place] [address] 10/31/2021 08:03:59 10/31/2021 08:55:25 [id number] RAFAEL BARRIENTOS [address] [place] [address] 07/10/2022 14:03:42 07/10/2022 17:20:20 Dysuria 78939061 R30.0 Health Concerns Section Related Observation LastModified by Organization Detai ls LastModified Time None Recorded Concern Status LastModified by Organization Details LastModified Time None Recorded Advance Directives Directive None Recorded Payers Encounter Date Sequence Insurance Name Policy Number Policy [place] Covered Member ID [place] Member ID Guarantor Name 09/13/2020 1 [facility] [id number] 1 Joann Bocanegra [id number] Joann Bocanegra 02/26/2021 1 [facility] [id number] 1 Joann Bocanegra [id number] Joann Bocanegra 10/31/2021 1 [facility] [id number] 1 Joann Bocanegra [id number] Joann Bocanegra 11/20/2021 1 [facility] [id number] 1 Joann Bocanegra [id number] Joann Bocanegra 07/10/2022 1 [facility] - MEDICARE ADVANTAGE PLAN (MEDICARE REPLACEMENT HMO) [id number] 1 Joann Bocanegra [id number] Joann Bocanegra Notes Date Note Type Note Provider Name and Address Organization Details Recorded Time 3 text/html Urinary Complaint FemaleReported bypatient.source of patient informationInformation obtained from patient; Patient arrived at Urgent Care ambulatory UTI Symptoms:no blood in the urine; no fever/chills; no recurrent UTI;pain during urination;urgency;urinary frequency Severity:mild Duration:3 daysNotes:The patient does not get regular UTI. [place] burning with urination and now it is the frequency and pain in the mid back. The patient reports that has not notice any blood. b?P elevated today but she monitors it at home. Is on blood pressure medication. follows with primary regularly. RAFAEL BARRIENTOS [address] [place], [address], PA - [facility] 07/10/2022 17:46:50 OBGyn Episode No OBEpisode recorded.
== END 2024-07-05 11:31 | disposition home or self-care (01) ==
PROVIDERS: Emergency Provider Emergency Medicine; PCP Internal Medicine
DX: S16.1XXA Strain of muscle, fascia and tendon at neck level, initial encounter (principal); V43.52XA Car driver injured in collision with other type car in traffic accident, initial encounter; W22.11XA Striking against or struck by driver side automobile airbag, initial encounter; Y93.89 Activity, other specified; Y92.414 Local residential or business street as the place of occurrence of the external cause; Y99.9 Unspecified external cause status
CPT/HCPCS: 70450; 70486; 72125; 99284

== ENCOUNTER → 2024-07-05 08:33 | Outpatient (BNV) | payer MEDICARE, SELFPAY | PROVIDERS: Emergency Provider Emergency Medicine; PCP Internal Medicine; Visit Provider Radiology Diagnostic Radiology | DX: M47.812 Spondylosis without myelopathy or radiculopathy, cervical region (principal); R51.9 Headache, unspecified | CPT/HCPCS: 70450; 70486; 72125 ==